=== PATIENT | male | born 1955 | race Caucasian/White ===

== ENCOUNTER 2018-05-15 18:50 | Emergency (ER) | payer MEDICARE ==
[~2018-05-15] VITALS: Ht 175.3 cm; Wt 75.8 kg
[2018-05-15 18:52] VITALS: BP 152/77
[2018-05-15] MEDS ORDERED: HYDROcodone/APAP 5/325 TABLET ONE (19:27)
[2018-05-15] MEDS ORDERED: HYDROcodone/APAP 5/325 TABLET PO ONE (19:30)
== END 2018-05-15 20:22 | disposition home or self-care (01) ==
LOC: ED 20:20
DX: S63.512A Sprain of carpal joint of left wrist, initial encounter (principal); M19.90 Unspecified osteoarthritis, unspecified site; W18.30XA Fall on same level, unspecified, initial encounter; Y93.79 Activity, other specified sports and athletics; Y99.8 Other external cause status; Y92.828 Other wilderness area as the place of occurrence of the external cause
CPT/HCPCS: 99284